=== PATIENT | male | born 1960 | race Two or more races ===

== ENCOUNTER 2018-04-01 06:48 | Day surgery (SDC) | payer OTHER | END 2018-04-01 12:15 | disposition home or self-care (01) | LOC: AMB-ENDOS 06:48 | DX: D12.4 Benign neoplasm of descending colon (principal) ==

== ENCOUNTER 2023-01-24 11:45 | Inpatient (IN) | payer OTHER ==
[~2023-01-24] VITALS: Ht 170.2 cm; Wt 123.4 kg
[2023-01-24] MEDS ORDERED: NABUMETONE500 MG PO (13:21)
[2023-01-24] MEDS ORDERED: GABAPENTIN800 M1 PO (13:21)
[2023-01-24] MEDS ORDERED: ZEGERID 40 MG1 EACH PO (13:22)
[2023-01-24] MEDS ORDERED: ZESTRIL10 M1 PO (13:22)
[2023-01-24] MEDS ORDERED: ATORVASTATIN CA40 MG PO (13:22)
[2023-02-01] MEDS ORDERED: LISINOPRIL-HCT1 EAC2 (08:23)
[2023-02-01] MEDS ORDERED: OMEPRAZOLE40 MG (08:23)
[2023-02-01] MEDS ORDERED: DICLOFENAC SOD100 GM (08:23)
[2023-02-04] MEDS ORDERED: TRAM1TAB98 PO (11:43)
[2023-02-04] MEDS ORDERED: INTESTINEX680 M1 PO (11:44)
== END 2023-02-04 12:34 | disposition home or self-care (01) | DRG 331 ==
LOC: O/R 01-31 07:08 → SURH 01-31 10:15
PROVIDERS: ADMIT Surgery; ATTEND Surgery
PROC: 0DTM4ZZ Resection of Descending Colon, Percutaneous Endoscopic Approach (ICD-10-PCS; 2023-01-31)
PROC: 0DTL4ZZ Resection of Transverse Colon, Percutaneous Endoscopic Approach (ICD-10-PCS; 2023-01-31)
PROC: 0DTF4ZZ Resection of Right Large Intestine, Percutaneous Endoscopic Approach (ICD-10-PCS; principal; 2023-01-31 10:15)
DX: D37.4 Neoplasm of uncertain behavior of colon (principal); D12.4 Benign neoplasm of descending colon; R19.4 Change in bowel habit

== ENCOUNTER 2023-02-06 12:53 | Inpatient (IN) | payer OTHER ==
[~2023-02-06] VITALS: Ht 170.2 cm; Wt 122.5 kg
[~2023-02-06 12:53] MED LIST: ATORVASTATIN CA40 MG PO; DICLOFENAC SOD100 GM; GABAPENTIN800 M1 PO; INTESTINEX680 M1 PO; LISINOPRIL-HCT1 EAC2; NABUMETONE500 MG PO; OMEPRAZOLE40 MG; TRAM1TAB98 PO; ZEGERID 40 MG1 EACH PO; ZESTRIL10 M1 PO
--- NOTE | 2023-02-06 13:10 | NUR ---
SE RECIBE PACIENTE ALERTA Y ORIETNADO EN JUDE LYNDSAY ESFERAS EN AMBULANCIA; REFIERE QUE FUE OPERADO EL [address] PREETHI ACUNA. EN ADICION REFIERE TENER DOLOR ABDOMINAL, VOMITOS X5 Y DIARREAS X6. SE OBSERVA CANALIZACION PREVIA DE AMBULANCIA CON ANGIO #24 PATENTE, CARLOS DE EDEMA O ERITEMA. SE MONITOREAN VS Y SE UBICA EN ASA #11
--- NOTE | 2023-02-06 15:35 | NUR ---
SE ORIENTA PTE SOBRE TX A SEGUIR, EL MISMO REFIERE ENTENDER. SE MELISA MUESTRAS DE LAB Y SE ADMINISTRAN MEDS BAJO MEDIDAS ASEPTICAS. PEND CT
[2023-02-07] MEDS ORDERED: LISINOPRIL10 MG (09:36)
[2023-02-07] MEDS ORDERED: NABUMETONE750 MG (09:36)
[2023-02-13] MEDS ORDERED: INTESTINEX680 M1 PO (08:25)
[2023-02-13] MEDS ORDERED: DICY20TA PO (08:26)
[2023-02-13] MEDS ORDERED: PEPCID AC20 MG PO (08:26)
== END 2023-02-13 09:37 | disposition home or self-care (01) | DRG 390 ==
LOC: ER 12:53 → MEDI 22:10
PROVIDERS: ADMIT Surgery; ATTEND Surgery
PROC: BW21YZZ Computerized Tomography (CT Scan) of Abdomen and Pelvis using Other Contrast (ICD-10-PCS; principal; 2023-02-06)
PROC: 02HV33Z Insertion of Infusion Device into Superior Vena Cava, Percutaneous Approach (ICD-10-PCS; 2023-02-07)
DX: K56.609 Unspecified intestinal obstruction, unspecified as to partial versus complete obstruction (principal); D12.4 Benign neoplasm of descending colon; I10 Essential (primary) hypertension; G47.33 Obstructive sleep apnea (adult) (pediatric); D72.829 Elevated white blood cell count, unspecified; B96.7 Clostridium perfringens [C. perfringens] as the cause of diseases classified elsewhere